=== PATIENT | male | born 1955 | race Caucasian/White ===

== ENCOUNTER 2018-05-12 07:36 | Observation (INO) | payer BC ==
--- NOTE | 2018-05-09 12:21 | HP ---
ADMIT DATE: 05/12/2018 DATE OF SURGERY: 05/12/2018. HISTORY OF PRESENT ILLNESS: The patient is a pleasant 62-year-old who has had difficulty with low back pain and left greater than right posterior thigh pain. Most of the pain is in the buttock and posterior thighs and stops at the knees. Standing and walking markedly increases the pain. The problem has been present for years, but has been much worse over the last year or two. Heavy lifting and working increases the pain. Ice and electrical stimulation can help him. Epidural steroid injections have been done in the past, which he said gave him no lasting relief and felt that the steroids adversely affected his emotional state. PAST MEDICAL HISTORY: Arthritis, artificial valve, head or neck injury, heart failure, hypertension, diabetes. PAST SURGICAL HISTORY: Finger surgery in 1997, cervical surgery in 1999, left trigger finger 2012, multiple finger surgeries in 2014, eye surgeries. FAMILY HISTORY: Cancer, diabetes, heart problems and disease. 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 . Exercises weekly. Denies current substance or tobacco use. Drinks coffee and tea daily. ALLERGIES: CIPRO. CURRENT MEDICATIONS: Metformin, simvastatin, lisinopril, glimepiride, zolpidem, fish oil, aspirin, vitamin D3, and Centrum Silver. PHYSICAL EXAMINATION: NEUROSURGERY EXAMINATION: GENERAL APPEARANCE: Alert, pleasant, in no acute distress. HEAD: Normocephalic and atraumatic. SKIN: Warm and dry. MUSCULOSKELETAL: Lumbar paraspinal muscle bulk is normal, restricted range of motion of the lumbar spine, [id number] tenderness of lower lumbar spine with palpation, normal range of motion of the lower extremities bilaterally. EXTREMITIES: No clubbing, cyanosis or edema. NEUROLOGIC: Alert and oriented x 3, normal recent and remote memory, strength 5/5 in bilateral lower extremities. Sensory is intact to light touch in bilateral lower extremities. Reflexes were present and symmetric in the lower extremities bilaterally, negative straight leg raising bilaterally, normal gait. IMAGING: I reviewed a lumbar MRI scan. On that study, there is moderately severe stenosis at L3-L4 and L4-L5. There is stenosis, but to a lesser extent at L5-S1. The lateral recesses are compressed at L3-L4 and markedly compressed at L4-L5. ASSESSMENT/ PLAN: I believe the significant portion of his problems are related to the lateral recess stenosis and narrowing at L3-L4 and L4-L5. My recommendation is that he undergo bilateral lumbar microdecompressive surgery at these levels. I spoke about the surgery and the risks involved. He understands. He would like to go ahead. We will make the arrangements. ANGELES OLIVEROS MD DR: LOIDA/jairo JOB#: [id number] / [id number] LUCAS
[~2018-05-12] VITALS: Ht 172.7 cm; Wt 96.6 kg
[2018-05-12] VITALS (7 sets, daily range): BP systolic 121–157; BP diastolic 68–84
[~2018-05-12 07:36] MED LIST: AMLO10TA8 PO; ASPI325T8 PO; BACITRACIN 50,000 UNIT in IV NORMAL SALINE 1000ML BAG 1,000 ML IRR ONE; BUPIVAC MPF-EPI 0.5%-1:200000 30 ML VIAL. ONE; CHLO25TA10 PO; CHOL10003 PO; GELATIN SPONGE SIZE 12-7MM SPONGE. ONE; GLIM4TAB2 PO; HYDROmorphone 2 MG/ML VIAL IV PRN; KETOROLAC 60 MG/2 ML INJ FOR OR. ONE; LIDOCAINE 1% PF 2 ML VIAL. ID PRN; LOSA100T14 PO; METF10007 PO; MORPHINE SULFATE 2 MG/ML VIAL. IV PRN; MULT-697 PO; NAPR220T70 PO; OMEG1CAP38 PO; ONDANSETRON PF 4 MG/2 ML VIAL. IV PRN; PIOG45TA62 PO; PROCHLORPERAZINE 10 MG/2 ML VIAL. IV PRN; SIMV40TA3 PO; THROMBIN TOPICAL 20,000 UNIT SPRAY.SYRN KIT TP ONE; ZOLP10TA4 PO; fentaNYL PF VIAL 100 MCG/2 ML VIAL IV PRN
[2018-05-12] MEDS: IV RINGERS,LACTATED 1000ML 1,000 ML IV SCH ×2 (08:46→17:06)
[2018-05-12] MEDS ORDERED: ONDANSETRON PF 4 MG/2 ML VIAL. ONE (09:58)
[2018-05-12] MEDS ORDERED: PROPOFOL 50 ML IV ONE ×3 (09:58→13:59)
[2018-05-12] MEDS ORDERED: DEXAMETHASONE SOD PHOS 20 MG/5 ML VIAL. ONE (09:58)
[2018-05-12] MEDS ORDERED: PROPOFOL 20 ML IV ONE (09:58)
[2018-05-12] MEDS ORDERED: PHENYLEPHRINE 10 MG/ML VIAL. ONE (09:58)
[2018-05-12] MEDS ORDERED: LIDOCAINE 2% PF 5 ML VIAL. ONE (09:58)
[2018-05-12] MEDS ORDERED: MIDAZOLAM HCL/PF 2 MG/2 ML VIAL. ONE (09:59)
[2018-05-12] MEDS ORDERED: REMIFENTANIL 2 MG VIAL. IV ONE (09:59)
[2018-05-12] MEDS ORDERED: ROCURONIUM 50 MG/5 ML VIAL. ONE (09:59)
[2018-05-12] MEDS ORDERED: GLYCOPYRROLATE 1 MG/5 ML VIAL. ONE (10:13)
[2018-05-12] MEDS ORDERED: POTASSIUM CL 20MEQ-0.45% NACL 1,000 ML IV SCH (12:49)
[2018-05-12] MEDS ORDERED: DESFLURANE > 120 MINUTES IH ONE (12:57)
[2018-05-12] MEDS ORDERED: MAGNESIUM HYDROXIDE 2,400 MG/30 ML ORAL.SUSP. PO PRN (13:00)
[2018-05-12] MEDS ORDERED: ONDANSETRON PF 4 MG/2 ML VIAL. IV PRN (13:00)
[2018-05-12] MEDS ORDERED: fentaNYL PF VIAL 100 MCG/2 ML VIAL IV PRN (13:00)
[2018-05-12] MEDS ORDERED: ACETAMINOPHEN 325 MG TABLET. PO PRN (13:00)
[2018-05-12] MEDS: amLODIPine BESYLATE 10 MG TABLET PO SCH (13:00)
[2018-05-12] MEDS ORDERED: NON FORMULARY ITEM (Zolpidem Tartrate 10 MG) PO PRN (13:00)
[2018-05-12] MEDS ORDERED: MAG HYDROX/ALUMINUM HYD/SIMETH 30 ML ORAL.SUSP PO PRN (13:00)
[2018-05-12] MEDS ORDERED: CALCIUM CARBONATE 500 MG TAB.CHEW PO PRN (13:00)
[2018-05-12] MEDS ORDERED: 0.9 % SODIUM CHLORIDE 10 ML DISP.SYRIN. IV PRN (13:00)
[2018-05-12] MEDS ORDERED: ZOLPIDEM 5 MG TABLET. PO PRN (13:00)
[2018-05-12] MEDS ORDERED: DEXTROSE 50% 25 GM / 50ML DISP.SYRIN. IV PRN (13:00)
[2018-05-12] MEDS ORDERED: NALOXONE 0.4 MG/ML VIAL. IV PRN (13:00)
[2018-05-12] MEDS ORDERED: HYDROcodone/APAP 5/325MG 1 TAB TABLET PO PRN ×2 (13:00)
[2018-05-12] MEDS ORDERED: diphenhydrAMINE HCL 25 MG CAPSULE PO PRN (13:00)
[2018-05-12] MEDS: CHOLECALCIFEROL (VITAMIN D3) 1,000 UNIT TABLET PO SCH ×2 (13:00→21:03)
[2018-05-12] MEDS: LOSARTAN POTASSIUM 50 MG TABLET. PO SCH ×2 (13:00→21:09)
[2018-05-12] MEDS: NAPROXEN 250 MG TABLET PO SCH ×2 (13:15→21:03)
[2018-05-12] MEDS: PIOGLITAZONE 15 MG TABLET. PO SCH ×2 (13:15→21:05)
[2018-05-12] MEDS ORDERED: REMIFENTANIL 1 MG VIAL. IV ONE (13:52)
[2018-05-12] MEDS: METHOCARBAMOL 750 MG TABLET PO SCH ×2 (14:00→21:02)
[2018-05-12] MEDS ORDERED: GELATIN SPONGE SIZE 12-7MM SPONGE. ONE (14:27)
[2018-05-12] MEDS: fentaNYL PF VIAL 100 MCG/2 ML VIAL IV PRN ×2 (15:27→16:41)
[2018-05-12] MEDS ORDERED: INSULIN LISPRO 100 UNIT/ML 3ML VIAL. SQ ONE (16:15)
--- NOTE | 2018-05-12 16:46 | NUR ---
Arrived to unit by bed from PACU. Alert and oriented x's 4. No c/o at present time. Moves all extremities without difficulty. No numbness or pain. Dressing on the lower back is intact with some drainage noted. IVF's intact and infusing. NATHAN's and TIBURCIO's on bilaterally. Oriented to room and controls. Side rails up x's 2 with call light in reach. at bedside. Cont. monitor.
--- NOTE | 2018-05-12 17:32 | NUR ---
Up in chair with ice pack placed lower back. No c/o. Ate 100% dinner. Taking fluids well. IV saline locked. Cont. monitor.
[2018-05-12] MEDS: metFORMIN 500 MG TABLET PO SCH (17:40)
--- NOTE | 2018-05-12 18:36 | OP ---
DATE OF SURGERY: 05/12/2018. PREOPERATIVE DIAGNOSIS: Lumbar spinal stenosis at L3-L4 and L4-L5 with neurogenic claudication. POSTOPERATIVE DIAGNOSIS: Lumbar spinal stenosis at L3-L4 and L4-L5 with neurogenic claudication. OPERATION PERFORMED: Bilateral hemilaminotomies with decompression of dura and nerve root at L3-L4 and L4-L5. The operation was done with EMG monitoring, SSEP monitoring, fluoroscopy and microscopic dissection. SURGEON: Yehuda Oliveros M.D. VENDOR QUALITY SUPERVISOR: JESS Griffin assisted with the surgery. She assisted with the microdecompression. OPERATIVE INDICATIONS: The patient is a pleasant 62-year-old man who developed intractable back and bilateral leg pain, which failed conservative measures. On imaging studies, he was found to have severe stenosis related to hypertrophic facet and thickened ligamentum flavum as well as disc bulging. I recommended lumbar microsurgery. I spoke about the surgery, the risks, technique and expected postoperative course and he wished to go ahead. DESCRIPTION OF PROCEDURE: Following general endotracheal anesthesia, the patient was positioned prone on the Elton table. Lumbar region prepped and draped in standard fashion. NATHAN hose and AV impulse boots were applied for DVT prophylaxis. The microscope was draped. Fluoroscopy was draped and brought in the field. Monitoring was established. Ancef 2 grams was given less than 1 hour prior to the initiation of the surgery. Using fluoroscopic guidance, a midline incision was made extending from L3 through L5. I dissected down through skin and subcutaneous tissue, reflecting the paraspinal muscles to the left and brought in the microscope and placed a Dimmitt microdisk retractor. I used a high speed air drill to bur down a generous hemilaminotomy first at L4-L5 and then at L3-L4, peeling away the very thickened ligamentum flavum and working toward the midline with Kerrison's as well as performing partial foraminotomy. The disc was bulging at both levels, but extremely firm and calcified and no discectomy was warranted. I did coagulate a number of large epidural veins and fully decompressed the region. I then went to the right side and performed the identical operation on the right side. Again, I found posterior disc bulging, which was very firm and calcified as well as large epidural veins, which were coagulated. Bone wax was used judiciously during the operation. I performed partial foraminotomies bilaterally at both levels. I irrigated copiously with antibiotic solution. I worked diligently and obtained excellent hemostasis in the muscle and then I closed the wound in layers with absorbable suture. The skin was closed with 4-0 subcuticular stitch. The operation went very well and the patient was awakened uneventfully and I was quite pleased with the surgery. YEHUDA OLIVEROS MD DR: LOIDA/jairo JOB#: [id number] / [id number] LUCAS
[2018-05-12] MEDS ORDERED: ATORVASTATIN CALCIUM 20 MG TABLET PO SCH (21:00)
[2018-05-12] MEDS: DOCUSATE SODIUM 100 MG CAPSULE. PO SCH (21:03)
[2018-05-12] MEDS: OMEGA-3 FATTY ACIDS/FISH OIL 1,000 MG CAPSULE. PO SCH (21:04)
[2018-05-12] MEDS: GLIMEPIRIDE 2 MG TABLET. PO SCH (21:04)
[2018-05-13 02:58] VITALS: BP 141/83
--- NOTE | 2018-05-13 05:46 | NUR ---
Slept well, denies numbness/tingling and weakness of legs. Lortab given for c/o surgical pain. Ambulating w/o difficulty to toilet. Anticipates dismissal today.
[2018-05-13 06:31] VITALS: BP 123/75
[2018-05-13 07:38] VITALS: BP 123/72
[2018-05-13] MEDS: amLODIPine BESYLATE 10 MG TABLET PO SCH (07:38)
[2018-05-13] MEDS: OMEGA-3 FATTY ACIDS/FISH OIL 1,000 MG CAPSULE. PO SCH (07:39)
[2018-05-13] MEDS: GLIMEPIRIDE 2 MG TABLET. PO SCH (07:39)
[2018-05-13] MEDS: metFORMIN 500 MG TABLET PO SCH (07:39)
[2018-05-13] MEDS: METHOCARBAMOL 750 MG TABLET PO SCH (07:39)
[2018-05-13] MEDS: NAPROXEN 250 MG TABLET PO SCH (07:39)
[2018-05-13] MEDS: DOCUSATE SODIUM 100 MG CAPSULE. PO SCH (07:40)
[2018-05-13] MEDS ORDERED: MULTIVITAMIN with MINERAL TABLET. PO SCH (09:00)
[2018-05-13] MEDS ORDERED: ASPIRIN 325 MG TABLET PO SCH (09:00)
--- NOTE | 2018-05-13 09:34 | DISCH ---
DISCHARGE INSTRUCTIONS Condition on Discharge Condition on Discharge: Stable Activity After Discharge Activity Instructions for Disc: Activity as tolerated, Avoid exertion, Progressive ambulation Bathing Instructions: Shower-keep dressing dry, No Tub Bath until see Lifting Instructions after Dis: No heavy lifting, No pulling or pushing, Do not lift >10 pounds Exercise Instruction after Dis: Exercise per therapy, Progress as tolerated Driving Instructions after Dis: Do not drive Diet after Discharge Diet after Discharge: Diabetic No Calorie Level Additional Diet Restrictions: resume home diet Liquid Texture: Thin Liquid Wound Incision Care Wound/Incision Care: Ice to area for comfort, Change dressing, May get incision wet, Reinforce dressing PRN Other wound/incision instructi: May shower in 48 hours and replace dressing if desired or drainage present Wound Care Equipment: Dressings Checks after Discharge Checks after discharge: Check blood press - daily, Check blood sugar, ac/hs Contacting the DRHesham after DC Call your doctor for: Concerns you may have Follow-Up Follow Up With: Dr Oliveros's nurse in 10-14 days ANGELES OLIVEROS MD May 13, 2018 09:34
[2018-05-13] MEDS ORDERED: HYDR-2761 PO (09:38)
[2018-05-13] MEDS ORDERED: METH750T2 PO (09:38)
[2018-05-13] MEDS ORDERED: DOCU-109 PO (09:38)
--- NOTE | 2018-05-13 11:00 | NUR ---
Patient left the facility in a wheelchair with a family friend and his . He left with all his belongings. Discharge education was completed by this nurse, therapy, and [employer] Sonja. Surgical incision dressing was changed without any complications. IV's were discontinued in both hands. NO concerns noted upon discharge. Scripts for robaxin and lortab given to the patient
--- NOTE | 2018-05-15 18:06 | PATHOLOGY ---
[facility] Accession Number: [id number] . 01 Material submitted: . LUMBAR DECOMPRESSION . 01 Clinical history: . Lumbar stenosis, radiculopathy, neurogenic claudication . 02 Diagnosis: Segments of fibrocartilaginous, fibroadipose, and skeletal muscle tissue and bone, lumbar decompression: - Degenerative changes of fibrocartilaginous tissue. (JPM:benny; 05/15/2018) QMS/05/15/2018 . 02 Comment: There is no evidence of an acute inflammatory process or malignancy. . 02 Electronically signed: . Chencho Romero MD, Pathologist NPI- [id number] . 01 Gross description: . Received in formalin labeled "Ian Ramsey, lumbar decompression," are several pieces of glistening, fibrous tissue measuring 6.9 x 6.1 x 1.9 cm in aggregate dimensions, containing small fragments of possible bone. The tissue is submitted representatively in cassette A1, following decalcification. (TSD; 05/13/2018) TOB/TOB . 02 Pathologist provided ICD-10: M51.36 . 02 CPT . 929255, [id number] Specimen Comment: A courtesy copy of this report has been sent to Specimen Comment: [phone]. Specimen Comment: Report sent to Performed at: 01 [facility] [address], [place] [id number] MD Nino Higgins MD Phone: [phone] Performed at: 02 [facility] [address] [place], [place] [id number] MD Chencho Romero MD Phone: [phone]
== END 2018-05-13 11:00 | disposition home or self-care (01) ==
LOC: SURG 07:36 → 4 SOUTHEST 15:17
PROVIDERS: ADMIT Neurological Surgery; ATTEND Neurological Surgery
DX: M54.16 Radiculopathy, lumbar region (principal); E11.9 Type 2 diabetes mellitus without complications; I11.0 Hypertensive heart disease with heart failure; I50.9 Heart failure, unspecified; M65.30 Trigger finger, unspecified finger; M48.062 Spinal stenosis, lumbar region with neurogenic claudication; M79.651 Pain in right thigh; Z83.3 Family history of diabetes mellitus
CPT/HCPCS: 63047; 63048; 76000; 82962; 97162; 97530; A7015; G0378; G0379; G8978; G8979; G8980; J0696; J0780; J1100; J1815; J1885; J2001; J2250; J2405; J2704; J3010; J3490; J7030; J7120; 88304; 88311